=== PATIENT | male | born 1955 | race Caucasian/White ===

== ENCOUNTER 2020-04-03 08:24 | Outpatient (CLI) | payer OTHER, SELFPAY ==
--- NOTE | 2020-04-03 08:25 | ECG_ITS ---
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
[2020-04-03 08:54] LABS: Anion Gap 6 mmol/L (8-16); Blood Urea Nitrogen 15 mg/dL (9-20); Calcium 9.6 mg/dL (8.4-10.2); Carbon Dioxide 33 mmol/L (22-30); Chloride 94 mmol/L (98-107); Estimated Glomerular Filt Rate > 60; Glucose 95 mg/dL (75-110); Potassium 4.2 mmol/L (3.4-5.0); Sodium 133 mmol/L (137-145)
== END 2020-04-03 08:25 | disposition home or self-care (01) ==
LOC: ANHSURGERY 08:25
PROVIDERS: Anesthesiology; PCP Family Medicine; Visit Provider Surgery
DX: Z01.818 Encounter for other preprocedural examination (principal); E11.9 Type 2 diabetes mellitus without complications; R94.31 Abnormal electrocardiogram [ECG] [EKG]; K40.90 Unilateral inguinal hernia, without obstruction or gangrene, not specified as recurrent; I10 Essential (primary) hypertension
CPT/HCPCS: 36415; 80048; 86850; 86900; 86901; 93005

== ENCOUNTER 2020-04-05 04:39 | Outpatient (CLI) | payer OTHER, SELFPAY ==
[2020-04-05 19:32] LABS: SARS-CoV-2 RNA PCR Negative
== END 2020-04-05 04:40 | disposition home or self-care (01) ==
LOC: ANHCOVIDDT 04:39
PROVIDERS: PCP Family Medicine; Visit Provider Surgery
DX: Z01.812 Encounter for preprocedural laboratory examination (principal); Z20.822 Contact with and (suspected) exposure to COVID-19
CPT/HCPCS: C9803; U0003

== ENCOUNTER 2020-04-09 02:11 | Day surgery (SDC) | payer OTHER, SELFPAY ==
[2020-04-02 13:40] VITALS: BMI 31.4
[2020-04-09] VITALS (13 sets, daily range): BP systolic 107–154; BP diastolic 58–90; PULSE 68–90; RESP 12–20; TEMP 36.2–36.8; O2SAT 92–98
--- NOTE | 2020-04-09 08:15 | P.PNAN_ITS ---
Anes - Eval Pre Procedure Procedure: Operation Date: 04/09/20 09:30 Proposed Procedures p Laparoscopic Left Inguinal Hernia Repair With Mesh, Davinci Assisted - Ray Camargo DO Date/Time: 04/09/20 08:15 Pre Op Diagnosis: Left Inguinal Hernia Patient Data Age: 64 Gender: M Height: 1.8 m Weight: 100 kg Last Vital Signs Temp 36.8 C 04/09/20 07:33 Pulse 68 04/09/20 07:33 Resp 20 04/09/20 07:33 BP 136/76 04/09/20 07:33 Pulse Ox 98 04/09/20 07:33 Allergies Allergy/AdvReac Type Severity Reaction Status Date / Time ampicillin AdvReac Mild rash Verified 04/09/20 08:12 doxycycline AdvReac Mild Rash Verified 04/09/20 08:12 Home Medications Medication Instructions Recorded Confirmed Type duloxetine 60 mg capsule,delayed 60 mg PO DAILY 03/03/20 04/09/20 History release gabapentin 300 mg capsule 300 mg PO TID 03/03/20 04/02/20 History lisinopril 20 mg tablet 20 mg PO DAILY 03/03/20 04/09/20 History meloxicam 15 mg tablet 15 mg PO DAILY 03/03/20 04/09/20 History metformin 500 mg tablet 500 mg PO BID 03/03/20 04/09/20 History metoprolol tartrate 25 mg tablet 25 mg PO DAILY 03/03/20 04/09/20 History omeprazole 40 mg capsule,delayed 40 mg PO DAILY 03/03/20 04/09/20 History release rosuvastatin 10 mg tablet 10 mg PO DAILY 03/03/20 04/09/20 History ECG: SINUS RHYTHM WITH FIRST DEGREE AV BLOCK ABNORMAL ECG Electronically Signed On 04-03-2020 9:26:08 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 Patient hx anesthesia problems: none Family hx anesthesia problems: none PMFSH Past Medical History Medical History (Updated 04/09/20 @ 08:17 by Hiral Tomlin CRNA) Chronic neck and back pain Chronic sinusitis GERD (gastroesophageal reflux disease) High cholesterol History of kidney stones Hypertension Macular degeneration Obesity (BMI 30-39.9) REBEL on CPAP Type 2 diabetes mellitus Surgical History Surgical History History of bilateral knee arthroplasty History of left hip replacement History of nephrolithotomy with removal of calculi History of sinus surgery History of spinal fusion Family History Family History Mother Hypertension Heart disease Sibling Heart transplant status Grandparent Bone cancer Social History Social History Smoking status: Never smoker Second hand tobacco smoke exposure: No Alcohol intake: never Substance use: never Substance use type: does not use Living arrangements: with family Spiritual care concerns: No Exam Day of Procedure 04/09/20 08:15
[2020-04-09] MEDS: ACETAMINOPHEN 500 MG TABLET 1000 MG PO (08:17)
[2020-04-09] MEDS: LACTATED RINGERS 1,000 ML 30 ML IV CONT ×3 (08:30→13:31)
[2020-04-09] MEDS: KETOROLAC 15 MG/ML VIAL (*BKC) IV PUSH (08:33)
[2020-04-09 08:38] LABS: Glucose Point of Care 97 (65-105)
--- NOTE | 2020-04-09 08:53 | WPDANESEPPF ---
Anes - Initial Pre Proc Eval Procedure: Operation Date: 04/09/20 09:30 Proposed Procedures p Laparoscopic Left Inguinal Hernia Repair With Mesh, Davinci Assisted - Ray Camargo DO Date/Time: 04/09/20 08:53 Surgeon: Ray Camargo DO Pre Op Diagnosis: Left Inguinal Hernia Patient Data Age: 64 Gender: M Height: 5 ft 11 in Weight: 100 kg Last Vital Signs Temp 36.8 C 04/09/20 07:33 Pulse 68 04/09/20 07:33 Resp 20 04/09/20 07:33 BP 136/76 04/09/20 07:33 Pulse Ox 98 04/09/20 07:33 Allergies Allergy/AdvReac Type Severity Reaction Status Date / Time ampicillin AdvReac Mild rash Verified 04/09/20 08:12 doxycycline AdvReac Mild Rash Verified 04/09/20 08:12 Home Medications Medication Instructions Recorded Confirmed Type duloxetine 60 mg capsule,delayed 60 mg PO DAILY 03/03/20 04/09/20 History release gabapentin 300 mg capsule 300 mg PO TID 03/03/20 04/02/20 History lisinopril 20 mg tablet 20 mg PO DAILY 03/03/20 04/09/20 History meloxicam 15 mg tablet 15 mg PO DAILY 03/03/20 04/09/20 History metformin 500 mg tablet 500 mg PO BID 03/03/20 04/09/20 History metoprolol tartrate 25 mg tablet 25 mg PO DAILY 03/03/20 04/09/20 History omeprazole 40 mg capsule,delayed 40 mg PO DAILY 03/03/20 04/09/20 History release rosuvastatin 10 mg tablet 10 mg PO DAILY 03/03/20 04/09/20 History Laboratory Tests 04/09/20 08:31 POC Capillary Glucose 97 mg/dl mg/dl (65-105) Patient hx anesthesia problems: none Family hx anesthesia problems: none PMFSH Past Medical History Medical History Chronic neck and back pain Chronic sinusitis GERD (gastroesophageal reflux disease) High cholesterol History of kidney stones Hypertension Macular degeneration Obesity (BMI 30-39.9) REBEL on CPAP Type 2 diabetes mellitus Surgical History Surgical History History of bilateral knee arthroplasty History of left hip replacement History of nephrolithotomy with removal of calculi History of sinus surgery History of spinal fusion Family History Family History Mother Hypertension Heart disease Sibling Heart transplant status Grandparent Bone cancer Social History Social History Smoking status: Never smoker Second hand tobacco smoke exposure: No Alcohol intake: never Substance use: never Substance use type: does not use Living arrangements: with family Spiritual care concerns: No Anes - Eval Final PreProcedure Day of Procedure 04/09/20 08:53 Patient weight: obese Heart: regular rate and rhythm Airway: Mallampati scale class III Neurological: alert and oriented Last oral intake: >/= 8 hours ASA classification: III Emergent: no Anesthetic plan: proceed Anesthesia type and monitoring: general ETT and standard monitoring Informed Consent: The patient's anesthetic plan and its attendant risks and benefits were discussed with the patient/family/POA. Questions were solicited and answers provided to the satisfaction of the patient/family/POA.
--- NOTE | 2020-04-09 09:13 | PM.IMHP ---
H&P: HPI History of Present Illness Date/Time: 04/09/20 09:13 Chief Complaint: Left inguinal hernia Narrative: Brent Ahuja is a 64 year old male who presents for left inguinal hernia repair. He reports no change since last seen in office. Review of Systems Review of Systems: All systems reviewed & are unremarkable except as noted in HPI and below Constitutional: Constitutional: Denies chills, Denies fever(s), Denies headache(s) and Denies weight loss Eyes: Eyes: Denies change in vision ENT: Denies dizziness, Denies headache(s), Denies neck mass and Denies throat swelling Cardiovascular: Cardiovascular: Denies chest pain, Denies lightheadedness and Denies dyspnea Respiratory: Respiratory: Denies cough, Denies dyspnea and Denies wheezing Gastrointestinal: Gastrointestinal: Denies abdominal pain, Denies change in bowel habits, Denies nausea and Denies vomiting Genitourinary: Genitourinary: Denies hematuria and Denies dysuria Musculoskeletal: Musculoskeletal: Reports as per HPI Integumentary/Breasts: Skin/Breast: Reports as per HPI Neurologic: Denies dizziness and Denies headache(s) Allergic/Immunologic: Allergic/Immunologic: Denies throat swelling and Denies wheezing PMFSH Past Medical History Medical History Chronic neck and back pain Chronic sinusitis GERD (gastroesophageal reflux disease) High cholesterol History of kidney stones Hypertension Macular degeneration Obesity (BMI 30-39.9) REBEL on CPAP Type 2 diabetes mellitus Surgical History Surgical History History of bilateral knee arthroplasty History of left hip replacement History of nephrolithotomy with removal of calculi History of sinus surgery History of spinal fusion Family History Family History Mother Hypertension Heart disease Sibling Heart transplant status Grandparent Bone cancer Social History Social History Smoking status: Never smoker Second hand tobacco smoke exposure: No Alcohol intake: never Substance use: never Substance use type: does not use Living arrangements: with family Spiritual care concerns: No Meds Home Medications and Allergies Home Medications Medication Instructions Recorded Confirmed Type duloxetine 60 mg capsule,delayed 60 mg PO DAILY 12/07/20 01/13/21 History release gabapentin 300 mg capsule 300 mg PO TID 03/03/20 04/02/20 History lisinopril 20 mg tablet 20 mg PO DAILY 03/03/20 04/09/20 History meloxicam 15 mg tablet 15 mg PO DAILY 03/03/20 04/09/20 History metformin 500 mg tablet 500 mg PO BID 03/03/20 04/09/20 History metoprolol tartrate 25 mg tablet 25 mg PO DAILY 03/03/20 04/09/20 History omeprazole 40 mg capsule,delayed 40 mg PO DAILY 03/03/20 04/09/20 History release rosuvastatin 10 mg tablet 10 mg PO DAILY 03/03/20 04/09/20 History Allergies Allergy/AdvReac Type Severity Reaction Status Date / Time ampicillin AdvReac Mild rash Verified 04/09/20 08:12 doxycycline AdvReac Mild Rash Verified 04/09/20 08:12 Vital Signs Vital Signs - 24 hr 04/09/20 07:33 Temperature 36.8 C Pulse Rate 68 Respiratory Rate 20 Blood Pressure 136/76 Pulse Oximetry 98 Exam Const: General: no acute distress and alert Orientation/consciousness: patient oriented x3 HENMT: Head: normocephalic and atraumatic Ears: hearing grossly normal bilaterally General nose exam: Normal nares present Mouth: Yes Normal oral and palatal mucosa present Eyes: Periorbital: periorbital findings normal Sclera: sclerae normal EOM: EOMs intact bilaterally Neck: Neck: normal visual inspection, no lymphadenopathy and trachea midline Chest: Chest palpation & inspection: normal inspection of the chest Resp: Effort & Inspection: normal respiratory effort Auscultation
--- NOTE | 2020-04-09 09:24 | WPDHPUPDATE1 ---
History and Physical Update Update Date/Time: 04/09/20 09:24 History and Physical has been reviewed, including an updated exam of the patient. There are NO changes in the patient's condition. Risks, benefits, and alternatives have been discussed and questions answered. Patient agrees to proceed with procedure.
--- NOTE | 2020-04-09 09:39 | SUR.PREOP ---
0940-PT UP TO BATHROOM TO VOID.
[2020-04-09] MEDS: ceFAZolin 2 GM/D5W 50 ML 2 GM/50 ML BAG IVPB (09:44)
[2020-04-09] MEDS: BUPIVACAINE HCL 0.5% PF 30 ML VIAL INFILTRATE (10:21)
--- NOTE | 2020-04-09 10:52 | PM.PROC ---
Procedure Note - Detailed Date of procedure: 04/09/20 Pre-op diagnosis: Left Inguinal Hernia Post-op diagnosis: same (Direct LIH) Procedure performed: Laparoscopic left inguinal hernia repair with Progrip mesh, da Serafin assisted Description of procedure: Procedure as well as risks, benefits, and alternatives were discussed with the patient. Written consent was obtained and placed in chart prior to procedure. Patient was brought back to surgical suite. He was placed supine on operating table. Time-out was done to confirm patient and procedure. He was then intubated by Anesthesia Department. His abdomen was prepped and draped in sterile fashion using chlorhexidine prep. 0.5% bupivacaine with epinephrine was infiltrated at each location for incision. An 8 mm incision was made in the left lateral abdomen, and a 5 mm Optiview trocar was advanced through the abdominal layers under direct visualization. Once inside the abdominal cavity, carbon dioxide insufflation was used to create a pneumoperitoneum. A camera was inserted and the abdominal cavity was inspected. The patient was placed in slight Trendelenburg position. An 8 millimeter incision was made on the right lateral abdomen and an 8 millimeter trocar was inserted under direct visualization. Another 8 millimeter incision was made just superior to the umbilicus and an 8 millimeter trocar was inserted under direct visualization. The 5 mm port was then removed and this was replaced with another 8 mm robotic port. The robotic arms were brought up to the patient's bedside and secured to the ports. The camera and instruments were inserted. I then moved over to the robotic console and took control of the camera and instruments. After careful inspection of the abdominal cavity, I began scoring the peritoneum along the left lower quadrant using scissors with electrocautery. The preperitoneal plane was entered and this was carefully dissected caudally along the inferior epigastric vessels. Careful dissection with scissors with electrocautery and blunt dissection was used to continue this dissection. I dissected far enough laterally to allow for mesh placement, and also dissected medially to identify the pubic arch and Bill's ligament. The hernia sac was identified and carefully dissected posteriorly. The cord contents were also identified and the peritoneum was carefully dissected far enough posteriorly to allow for mesh placement. Once an adequate pocket was created, I then placed the mesh within the preperitoneal pocket and carefully unfolded it. The mesh was centered on the hernia defect with adequate overlap circumferentially. The inferior edge of the mesh was inspected to ensure that it was far enough away from the peritoneal edge. The mesh appeared in proper position overlying the entire myopectineal orifice. The peritoneum was then closed over the mesh using a 3-0 V-lock running absorbable suture. The robotic instruments were removed. The robotic arms were disengaged from the ports and moved away from the bedside. The patient was flattened out in bed, the ports were removed under direct visualization, and the pneumoperitoneum was released. The skin of the incisions was approximated using 4-0 Monocryl subcuticular suture, and Exofin glue was applied on top. The patient was awakened from anesthesia, extubated, and transferred to recovery. Implants: Progrip Mesh 10cm x 15cm Anesthesia: GETA and local (0.5% bupivicaine with epi) Surgeon: Ray Camargo DO Estimated blood loss (mL): 5 Drains: No Packing: No Pathology: none sent Complications: No immediate complications Condition: stable Disposition: same day Findings: This is a 64-year-old man who presented with left groin pain for the past 1-2 years. He was noticing intermittent groin pain with activity. He denied being able to palpate a bulge. On physical exam he was found to have a small reducible left inguinal hernia. Discussions were m
[2020-04-09 11:15] LABS: Glucose Point of Care 106 (65-105)
--- NOTE | 2020-04-09 12:36 | SUR.PHASEII ---
PATIENT ABLE TO HAVE DROPS OF URINE. PATIENT DRINKING FLUIDS WELL. WILL ATTEMPT AGAIN. DR. GALLAGHER HERE TO SEE PT.
[2020-04-09] MEDS: oxyCODONE HCL (*CRX) 5 MG TAB IR PO (13:22)
--- NOTE | 2020-04-09 14:52 | SUR.PHASEII ---
PATIENT HAS HAD ONLY DROPS OF URINE IN THREE DIFFERENT ATTEMPTS. BLADDER SCAN DONE; [address] GALLAGHER CALLED TO DISCUSS PLAN.
--- NOTE | 2020-04-09 15:17 | SUR.PHASEII ---
DR. GALLAGHER SAID TO HAVE THE PATIENT PUSH ORAL FLUIDS, REPEAT BLADDER SCAN IN ONE HOUR AND CALL HIM BACK IF PATIENT STILL UNABLE TO URINATE. PATIENT UNDERSTANDS PLAN. DRINKING WELL.
--- NOTE | 2020-04-09 16:06 | SUR.PHASEII ---
PATIENT ABLE TO HAVE GOOD STREAM OF URINE PER PATIENT.
== END 2020-04-09 16:30 | disposition home or self-care (01) ==
PROVIDERS: PCP Family Medicine; Visit Provider Surgery
PROC: 8E0Y4CZ Robotic Assisted Procedure of Lower Extremity, Percutaneous Endoscopic Approach (ICD-10-PCS; CPT 49650; principal; 2020-04-09 09:30)
DX: K40.90 Unilateral inguinal hernia, without obstruction or gangrene, not specified as recurrent (principal); I10 Essential (primary) hypertension; E11.9 Type 2 diabetes mellitus without complications; E78.00 Pure hypercholesterolemia, unspecified; K21.9 Gastro-esophageal reflux disease without esophagitis; Z79.84 Long term (current) use of oral hypoglycemic drugs; G47.33 Obstructive sleep apnea (adult) (pediatric)
CPT/HCPCS: 49650; S2900; A9270; C1781; J0690; J1100; J1170; J1885; J2250; J2370; J2405; J2704; J2710; J3010; J7120

== ENCOUNTER 2023-03-16 11:02 | Emergency (ER) | payer MEDICARE, OTHER, SELFPAY ==
[2023-03-16 11:12] VITALS: BP 139/78; PULSE 71; RESP 16; TEMP 36.9; O2SAT 99
--- NOTE | 2023-03-16 11:43 | ED.URI ---
HPI - URI/Sore Throat General Chief Complaint: Upper Respiratory Infection Stated Complaint: drainage/cough/headache Time Seen by Provider: 03/16/23 11:48 Source: patient and RN notes reviewed Mode of arrival: ambulatory Limitations: no limitations History of Present Illness HPI Narrative: 67-year-old male presents with concern for 2 week history of nasal drainage, cough, sinus headache. He reports he has tried multiple [id number] interventions without remedy. Reports history of sinus infection. MD elicited complaint: cough, nasal congestion and sinus pain Related Data Home Medications Medication Instructions Recorded Confirmed duloxetine 60 mg capsule,delayed 60 mg PO DAILY 03/03/20 03/16/23 release gabapentin 300 mg capsule 600 mg PO TID 03/03/20 03/16/23 lisinopril 20 mg tablet 20 mg PO DAILY 03/03/20 03/16/23 meloxicam 15 mg tablet 15 mg PO DAILY 03/03/20 03/16/23 metformin 500 mg tablet 500 mg PO BID 03/03/20 03/16/23 metoprolol tartrate 25 mg tablet 25 mg PO DAILY 03/03/20 03/16/23 omeprazole 40 mg capsule,delayed 40 mg PO DAILY 03/03/20 03/16/23 release rosuvastatin 10 mg tablet 10 mg PO DAILY 03/03/20 03/16/23 amitriptyline 50 mg tablet 50 mg PO HS 03/16/23 03/16/23 glucosamine sulfate 500 mg tablet 500 mg PO DAILY 03/16/23 03/16/23 (Glucosamine) omega 3-gzv-pol-fish oil 1,200 mg 1 cap PO QID 03/16/23 03/16/23 (144 mg-216 mg) capsule (Fish Oil) potassium chloride 10 mEq 10 meq PO DAILY 03/16/23 03/16/23 capsule,extended release Allergies Allergy/AdvReac Type Severity Reaction Status Date / Time Penicillins Allergy Rash Verified 03/16/23 11:57 ampicillin AdvReac Mild rash Verified 03/16/23 11:48 doxycycline AdvReac Mild Rash Verified 03/16/23 11:48 Review of Systems Review of Systems: CONSTITUTIONAL: Denies malaise, chills, sweats, or fever. EYES: Denies visual changes, redness, or discharge. ENT: Reports rhinorrhea, congestion, sinus pain. Otalgia and sore throat. CARDIOVASCULAR: Denies chest pain, palpitations, or edema. RESPIRATORY: Reports cough. Denies dyspnea. GASTROINTESTINAL: Denies abdominal pain, nausea, vomiting, diarrhea SKIN: Denies rash or itching. MUSCULOSKELETAL: Denies myalgia. NEUROLOGIC: Reports headache. All systems reviewed & are unremarkable except as noted in HPI and below PMFSH Past Medical History Medical History Chronic neck and back pain Chronic sinusitis GERD (gastroesophageal reflux disease) High cholesterol History of kidney stones Hypertension Macular degeneration Obesity (BMI 30-39.9) REBEL on CPAP Type 2 diabetes mellitus Surgical History Surgical History H/O inguinal hernia repair 04/09/20 Laparoscopic left inguinal hernia repair with Progrip mesh, da Serafin assisted History of bilateral knee arthroplasty History of left hip replacement History of nephrolithotomy with removal of calculi History of sinus surgery History of spinal fusion Family History Family History Mother Hypertension Heart disease Sibling Heart transplant status Grandparent Bone cancer Social History Social History Smoking status: Never smoker Second hand tobacco smoke exposure: No Alcohol intake: never Substance use: never Substance use type: does not use Living arrangements: with family Occupation/Education: retired Spiritual care concerns: No Comments At time of signature, agree with nursing past medical, surgical, social and family history. There is no relevant family history pertinent to the presenting complaint Exam Narrative: GENERAL: Well-appearing, well-nourished, and in no acute distress. HEAD: Normocephalic EYES: PERRLA, conjunctivae clear ENT: Nares clear, turbinates edematous and erythematous, clear di
== END 2023-03-16 12:00 | disposition home or self-care (01) ==
PROVIDERS: Emergency Provider Nurse Practitioner; PCP Family Medicine
DX: J32.9 Chronic sinusitis, unspecified (principal); J40 Bronchitis, not specified as acute or chronic; K21.9 Gastro-esophageal reflux disease without esophagitis; E78.00 Pure hypercholesterolemia, unspecified; I10 Essential (primary) hypertension; H35.30 Unspecified macular degeneration; G47.33 Obstructive sleep apnea (adult) (pediatric); E11.9 Type 2 diabetes mellitus without complications; Z96.642 Presence of left artificial hip joint
CPT/HCPCS: 99213; G0463